=== PATIENT | female | born 1960 | race Caucasian/White ===

== ENCOUNTER 2017-11-03 13:54 | Observation (INO) | payer OTHER, SELFPAY ==
[2017-11-03] VITALS (9 sets, daily range): BP systolic 118–155; BP diastolic 59–90; PULSE 78–101; RESP 14–17; TEMP 36.5–37.4; O2SAT 96–100; BMI 21.4
--- NOTE | 2017-11-03 14:23 | CT_ITS ---
STUDY: CT ABDOMEN AND PELVIS WITH CONTRAST REASON FOR EXAM: Female, 57 years old. Right lower quadrant pain. RADIATION DOSAGE (If Supplied By Facility): CTDIvol = ( 16.98 ) mGy, DLP = ( 327.28 ) mGycm TECHNIQUE: Transaxial images were obtained from the dome of the diaphragm to the symphysis pubis without oral contrast. 100 ml of Isovue 300 contrast was administered. Sagittal and coronal images were reconstructed. Individualized dose optimization techniques were used for this CT. COMPARISON: None. FINDINGS: The visualized lung bases are unremarkable. The visualized portions of the heart are within normal limits. There is a 7 mm hypodense lesion in the right lobe of the liver, too small to characterize. An additional 5 mm hypodense lesion in the dome of the liver is too small to characterize. The liver is otherwise unremarkable. Normal gallbladder and extrahepatic biliary system. Normal spleen. Normal pancreas. Normal bilateral adrenal glands. Normal right kidney. Normal left kidney. The aorta is normal in caliber. The appendix is dilated and fluid-filled, measuring up to 0.9 cm. There is mild periappendiceal stranding. Findings are consistent with acute appendicitis. There is no bowel obstruction. There is no free fluid, free air, or organized collection. Normal urinary bladder. Normal visualized uterus. Normal abdominal wall. Normal osseous structures. CT/Abdomen/Pelvis WITH Contrast IMPRESSION: 1. Acute, uncomplicated appendicitis. 2. Hepatic hypodensities, too small to characterize. Electronically Signed: Zohra Larkin MD at 16:17 EDT Tel , Service support ,
[2017-11-03] MEDS: 0.9% Normal Saline 1,000 ML 125 ML IV ×2 (14:44→21:56)
[2017-11-03] MEDS: Ondansetron 4 MG/2 ML Vial IV (14:44)
[2017-11-03] MEDS: Morphine 4 MG/ML Syringe IV (14:44)
[2017-11-03 15:00] LABS: Absolute Lymphocyte Count 0.69 X10^3/ul (0.83-4.51); Absolute Neutrophil Count 13.9 X10^3/uL (2.0-7.7); Basophil# 0.02 X10^3/uL; Basophil% 0.1 % (0-1); Eosinophil# 0.03 X10^3/uL; Eosinophils% 0.2 % (0-5); Hemoglobin 14.1 g/dl (12.0-15.0); Lymphocyte # 0.69 X10^3/ul (4.0); Lymphocyte % 4.5 % (19-41); Mean Corp Hgb Conc 32.8 g/gl (32-36); Mean Corpuscular Hgb 30.1 pg (27.0-32.0); Mean Corpuscular Volume 91.9 fL (81-99); Mean Platelet Vol. 9.5 fl (6.2-12.0); Monocyte# 0.55 X10^3/uL; Monocyte% 3.6 % (0-10); Neutrophil # 13.89 X10^3/uL (2.7-7.7); Neutrophil % 91.5 % (47-70); Platelet Count 223 K/mm3 (150-450); RBC Distribution Width CV 12.6 % (11.6-14.6); RBC Distribution Width SD 41.9 fl (35.1-43.9); Red Blood Count 4.68 M/mm3 (4.2-5.4); White Blood Count 15.2 K/mm3 (4.4-11.0)
[2017-11-03 15:01] LABS: POSITIVE COUNT NO; POSITIVE DIFFERENTIAL NO; POSITIVE MORPHOLOGY NO
[2017-11-03 15:12] LABS: Anion Gap 7 (5-15); BUN 21 mg/dL (7-18); BUN/Creat Ratio 22.9 RATIO (10-20); Calcium,Total 9.1 mg/dL (8.5-10.1); Chloride 101 mmol/L (98-107); Creatinine, Serum 0.92 mg/dL (0.55-1.02); EST Glomerular Filtration Rate 67 mL/min (>60); Est Glom Filt Rate - Afr Amer 81 mL/min (>60); Glucose 106 mg/dL (74-106); Potassium 4.6 mmol/L (3.5-5.1); Sodium Level 135 mmol/L (136-145)
[2017-11-03 15:43] LABS: Bacteria 0 SEEN /hpf (None Seen); Mucous, Urine 0 SEEN /hpf (<or=2+); Red Blood Cells-Urine 0 SEEN /hpf (0-5); Squamous Epithelial Cells - UA 0 SEEN /hpf (5-10); White Blood Cells 0 SEEN /hpf (0-5)
[2017-11-03 15:52] LABS: Color, Urine Yellow (Yellow); Glucose, Dipstick Normal (Normal); Ketone-Dipstick Negative (Negative); Leukocyte Esterase-Dipstick Negative /ul (Negative); Nitrite-Dipstick Negative (Negative); Occult Blood-Urine Negative /ul (Negative); Protein-Dipstick Negative (Negative); Specific Gravity, Urine 1.005 (1.002-1.030); Urine Bilirubin Dipstick Negative (Negative); Urine Clarity Clear (Clear); Urine Urobilinogen Normal (Normal); Urine pH 6.5 (5.0 - 8.0)
--- NOTE | 2017-11-03 16:25 | NURSING ---
PAGED DR HDZ
--- NOTE | 2017-11-03 16:30 | ED.VISSUMM ---
- ER Visit Summary Date of Service: 11/03/17 Chief Complaint: Abdominal pain History of Present Illness: The patient is a 57 F presenting for evaluation secondary to abdominal pain. Patient has a prior surgical history only of sections and past. Patient reports that today she had an onset of right lower quadrant abdominal pain at about 7 AM. It has been a continuous sharp pain that is worse with palpation worse with movement and worse with the car ride here. Patient reports that she has had nausea but no vomiting denies any diarrhea or constipation and endorses some anorexia associated with this. She also endorses some chills and sweats. She denies any urinary symptoms. Physical Examination: Vital signs within normal limits. Well-nourished female no acute distress. Moist mucous membranes no evidence of conjunctival pallor or scleral icterus. Neck supple. Heart regular rate and rhythm. Lungs sounds clear. Abdomen tender in the right lower quadrant with some voluntary guarding but no evidence of diffuse rigidity. There is a positive Rovsing sign. Negative rebound tenderness negative obturator sign. Remainder the physical otherwise unremarkable. Test Results: CBC shows leukocytosis of 15, chemistry and urinalysis are negative. CT abdomen and pelvis shows nonperforated appendicitis Emergency Department Course and Treatment: Patient presented for evaluation due to abdominal pain. Physical exam was concerning for appendicitis. This was confirmed by CT imaging as noted above. Patient requested consultation by Dr. Jack. Dr. Jack was contacted, patient was given preoperative Zosyn, and the patient will be taken to the operating room for definitive management. Disposition: Operating room Impression: 1. Acute appendicitis This note was generated with [employer] dictation software. It may contain incorrect words, spelling, and punctuation that were not noted in review of the chart prior to signing ED Disposition - Plan for ED Patient: Chief Complaint: Abd Pain Referrals: Tabitha Miranda DO [Primary Care Provider] -
--- NOTE | 2017-11-03 16:33 | ED.DCSUM_ITS ---
- ER Visit Summary Date of Service: 11/03/17 Chief Complaint: Abdominal pain History of Present Illness: The patient is a 57 F presenting for evaluation secondary to abdominal pain. Patient has a prior surgical history only of sections and past. Patient reports that today she had an onset of righ t lower quadrant abdominal pain at about 7 AM. It has been a continuous sharp pain that is worse with palpation worse with movement and worse with the car ride here. Patient reports that she has had nausea but no vomiting denies any diarrhea or constipation and endorses some anorexia associated with this. She also endorses some chills and sweats. She denies any urinary symptoms. Physical Examination: Vital signs within normal limits. Well-nourished female no acute distress. Moist mucous membranes no evidence of conjunctival pallor or scleral icterus. Neck supple. Heart regular rate and rhythm. Lungs sounds clear. Abdomen tender in the right lower quadrant with some voluntary guarding but no evidence of diffuse rigidity. There is a positive Rovsing sign. N egative rebound tenderness negative obturator sign. Remainder the physical otherwise unremarkable. Test Results: CBC shows leukocytosis of 15, chemistry and urinalysis are negat tico. CT abdomen and pelvis shows nonperforated appendicitis Emergency Department Course and Treatment: Patient presented for evaluation due to abdominal pain. Physical exam was concerning for appendicitis. This was confirmed by CT imaging as noted above. Patient requested consultation by Dr. Jack. Dr. Jack was contacted, patient was given preoperative Zosyn, and the patient will be taken to the operating room for definitive management. Disposition: Operating room Impression: 1. Acute appendicitis This note was generated with [employer] dictation software. It may contain incorrect words, spelling, and punctuation that were not noted in review of the chart prior to signing ED Disposition - Plan for ED Patient: Chief Complaint: Abd Pain Referrals: Tabitha Miranda DO [Primary Care Provider] -
--- NOTE | 2017-11-03 17:08 | PCM.HP.BLA ---
History and Physical Date of Admission: 11/03/17 Chief Complaint: abdominal pain History of Present Illness: 57 y/o WF presents with abdominal pain. Started at 7am this morning. She has noted some episodes of abdominal pain in the past, but not as severe. Has nausea, but no emesis. Not feeling hungry, hasn't eaten all day. 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 hypertension Past Surgical History: csection Medications: lipitor plavix lisinopril 10 mg qday Allergies: Has no known drug allergies Social history: TOB use denies ETOH use denies Review of Systems: General - denies fevers, not feeling hungry Cardiovascular denies chest pain, denies history of heart attack Pulmonary denies shortness of breath, denies coughing up blood Gastrointestinal as per HPI Neurological had CVA in June 2016, denies seizures Genitourinary denies burning with urination, denies blood in urine Hematological denies spontaneous/prolonged bleeding Skin denies open non healing wounds Musculoskeletal denies history of fractures Endocrine denies diabetes Psychological denies hallucinations Physical examination: Vital signs Temp 97.7F HR 83 RR 17 BP 130/82 General WD/WN WF in no apparent distress, alert and oriented, not septic appearing HEENT Normocephalic. EOM intact with sclera clear and no icterus noted. Neck is supple with no jugular venous distention noted. Trachea is midline. Lungs clear to auscultation. normal breath sounds in all lung anthony. No rales/rhonchi/wheezing noted. No labored breathing noted, such as retractions. Heart normal S1 and S2 auscultated. No rubs/clicks/murmurs noted. Abdomen soft, but tender in the right lower quadrant with rebound, hypoactive bowel sounds, no masses noted. Extremities no calf tenderness noted. No pitting edema noted. Genitourinary/Rectal deferred Skin nomal skin integrity. Neurological no focal deficits noted Psychological normal affect, patient is calm and appropriate Impression: right lower quadrant abdominal pain - appendicitis by CT scan leukocytosis Discussion/Plan: I have discussed the above with the patient, her and daughter who is present with her. The patient has signs/symptoms of appendicitis. I have offered the patient the procedure of laparoscopic appendectomy. I have explained the procedure to the patient. I have counseled the patient as to the risks of the procedure, including but not limited to: infection, bleeding, injury to any blood vessels/nerves, scar tissue, injury to any intraabdominal organs, injury to kidney/ureters, injury to bowel/bladder, intraabdominal abscess/bleeding, hernias at incisional sites, wound infections, possible open procedure, complications of anesthesia, postoperative pneumonia/cardiac problems/blood clots etc. the patient understands. She wishes to proceed. I have answered all questions to the patient?s satisfaction and the patient has no further questions.
[2017-11-03] MEDS: Piperacil/Tazobactam 3.375 GM/50 ML ML IV (17:10)
--- NOTE | 2017-11-03 18:30 | APP_PTH ---
PATIENT: TABITHA VERDUZCO LOC: [facility] U#:[id number] AGE/SX: 57/F ROOM: MS305 RE11/03/[address]: Dr. Kelli Jack MD : 1960 BED: 1 DIS: 11/03/2017 SPEC #: [id number] RECD: 11/04/17 10:30 STATUS: NOLA REQ #: [id number] DIXIE: 11/03/17 18:[address]: Kelli Jack DEPT: SURGICAL PATHOLOGY RECD BY: Martín Sanchez ENTERED: 11/04/17 11:09 SP TYPE: APPENDIX OTHR DR: Dr. Tabitha Miranda DO Tissues: Appendix, NOS Procedures: Surgery Specimen Level III HEADER OPERATION: Laparoscopic, appendectomy PRE-OP DIAGNOSIS: Acute appendicitis TISSUE SUBMITTED: Appendix MICROSCOPIC DIAGNOSIS Appendix: Acute appendicitis and periappendicitis. SUSAN:mercedes 11/05/17 MICROSCOPIC DESCRIPTION Slides are reviewed. GROSS DESCRIPTION Received is one container labeled with the patient's name and designated appendix. The specimen consists of an appendix measuring 8 cm in length and up to 1 cm in diameter. The attached periappendiceal adipose tissue measures up to 2 cm in width. No obvious perforation is identified. The mucosa is filled with purulent fecal material. No fecalith is identified. Flight Hostess sections are submitted in one cassette. / SJ:rg 11/04/17 TC:2 [facility]: [id number]
--- NOTE | 2017-11-03 18:54 | OP.PN_ITS ---
Immediate Post-Op Note Date of Procedure: 11/03/17 Primary Surgeon/Physician: Kelli Jack finishing range feeder: NOT,DEFINED Pre-Operative Diagnosis: right lower quadrant abdominal pain, appendicitis by CT scan, leukocytosis Post-Operative Diagnosis: acute appendicitis Surgery/Procedure Performed:: laparoscopic appendectomy Description of Surgical Findings:: acute appendicitis - not perforated Estimated Blood Loss: < 10 ml Specimen's removed: appendix Type of Anesthesia:: General ASA Class: ASA2 Plus Emergency - Admit VTE Documentation VTE Present on Admission: Yes VTE Mechan Device Prophylaxis: SCD's
--- NOTE | 2017-11-03 18:55 | DCINST_ITS ---
Discharge Diet: No Restrictions - avoid carbonated beverages for a couple of days, drink plenty of fluids Discharge Activity: Return to Normal Activity, May not drive while taking narcotic pain medications. Lifting Restrictions: no lifting greater than 20 pounds for 2 weeks Call your doctor if your incision/area has: Continuous Slow Oozing, Foul Smelling Discharge Call your doctor if you observe: Fever of 101 or Higher Additional Dressing/Incision Instructions:: Leave dressings in place. May get wet in shower. Do not soak - no tub baths/swimming Medications to take at Discharge Acetaminophen [Tylenol Tablet] 650 mg PO Q4H PRN PRN tablet 06/30/16 Atorvastatin Calcium [Lipitor] 40 mg PO QHS 11/03/17 Ciprofloxacin [Cipro] 500 mg PO BID #14 tab 11/03/17 Clopidogrel Bisulfate [Plavix] 75 mg PO QODAY 11/03/17 Hydrocodone Bitart/Apap 5-325 [[place] 5MG-325MG] 1 tab PO Q6H PRN PRN 5 Days #20 tab 11/03/17 Lisinopril [Zestril] 5 mg PO BID 11/03/17 Allergies/Adverse Reactions: Allergies No Known Allergies Allergy (Verified 11/03/17 14:20) The following prescriptions were given: Hydrocodone Bitart/Apap 5-325 [[place] 5MG-325MG] 1 tab PO Q6H PRN PRN 5 Days #20 tab PRN Reason: Pain Ciprofloxacin [Cipro] 500 mg PO BID #14 tab Primary Care Physician: Tabitha Miranda DO [Primary Care Provider] - Test Results: Test results from this visit will be discussed in further detail at your follow- up appointment, if applicable. Please Follow Up With: Kelli Jakc MD - call When: to be seen in 7-10 days, please call for date and time, thank you
[2017-11-03] MEDS: Bupiv/Epi 0.5% Mpf 30 ML Vial (19:14)
--- NOTE | 2017-11-03 19:49 | OP.PCM_ITS ---
Report of Operation Date of Procedure: 11/03/17 Pre-Operative Diagnosis: right lower quadrant abdominal pain, appendicitis by CT scan, leukocytosis Post-Operative Diagnosis: acute appendicitis Surgery/Procedure Performed:: laparoscopic appendectomy Description of Surgical Findings:: acute appendicitis - not perforated director employee safety and health: NOT,DEFINED Type of Anesthesia:: General Anesthesiologist: Homero Ramírez Specimen's removed: appendix Estimated Blood Loss (mL): < 10 ml Fluids Replaced: 700 ml RL Description of Procedure: After informed consent was obtained, the patient was brought into the operating room. Appropriate time out protocol was followed. She was then placed in the supine position on the operating table. The patient was then placed under general anesthesia. The patient?s abdomen was then prepped with a sterile surgical skin preparation and sterile surgical drapes were placed. The infraumbilical skin fold was grasped with penetrating clamps and the skin and subcutaneous tissues were infiltrated with 0.5% marcaine with epinephrine. A skin incision was then made. A Veress needle was then inserted into the intraabdominal cavity and checked to be in the proper position with a normal saline drop test. A CO2 pneumoperitoneum was then created. Once this was achieved, the Veress needle was removed and a 5 mm trocar was placed in its stead. A 5 mm laparoscope was then inserted into the trocar. Careful examination of the intraabdominal contents was then done. There was no evidence of injury to any internal organs from placement of the Veress needle or the trocar. Under direct visualization, a 12mm suprapubic trocar and a 5mm left low er quadrant trocar was then placed into the intraabdominal cavity. The skin and subcutaneous tissues at these sites were first infiltrated with 0.5% marcaine with epinephrine. Attention was then directed to the right lower quadrant. The appendix was visualized. It was grossly inflamed and had fibrinous exudate and swelling, it was not perforated. The mesentery of the appendix was taken down by cauterizing the tissue from the free edge to the base of the appendix with the Kleppinger device. Once the base of the appendix was freed of surrounding tissues, then the linear gastrointestinal stapling device was brought into the abdominal cavity via the 12mm port and placed across the base of the appendix. The stapling device was fired, thus stapling across the base of the appendix and transecting it simultaneously. The appendix was then placed in an Endobag and this was brought out through the suprapubic trocar. The appendix was then forwarded to Pathology for analysis. The appendiceal stump was carefully examined. There was no evidence of any active bleeding or fecal leakage. The surrounding tissues were also examined and there was no evidence of any active bleeding or fecal/bile leakage. The intraabdominal cavity was examined and there was no evidence of further inflammation or tissue abnormality. Small squares of surgicel was applied to the staple line. There was no evidence of any peritoneal fluid. The CO2 pneumoperitoneum was released and all trocars were removed intact. The suprapubic fascia was reapproximated with a figure-of-8 vicryl suture. All skin incisions were reapproximated with monocryl suture. Cavilon and steristrips were applied to reinforce skin closure and proper sterile dressings were placed. The patient was then extubated and brought to the Recovery Room in stable condition. - Complications none noted - Admit VTE Documentation VTE Present on Admission: Yes VTE Mechan Device Prophylaxis: SCD's
[2017-11-03] MEDS: 0.9% NaCl Peripheral Flush Adult/Peds IV (21:56)
[2017-11-03] MEDS: HYDROcodone Bitartrate/Apap 5/325 Tablet PO (23:49)
--- NOTE | 2017-11-03 23:50 | NURSING ---
medicated pt for pain with Bumpass before discharging. home prescription is Bumpass q6h, instructed pt to not take another Bumpass until 6 hours from now, just before 6am.
== END 2017-11-03 23:58 | disposition home or self-care (01) ==
LOC: ED 14:49 → SDC 17:01 → ACINP 17:02 → SDC 20:04 → ACINP 20:05 → MS3 11-04 09:44
PROVIDERS: Admitting Provider Surgery; Emergency Provider Emergency Medicine; Family Provider Family Medicine; PCP Family Medicine; Visit Provider Surgery
PROC: 0DTJ4ZZ Resection of Appendix, Percutaneous Endoscopic Approach (ICD-10-PCS; CPT 44970; principal; 2017-11-03 18:30)
DX: K35.80 Unspecified acute appendicitis (principal); I10 Essential (primary) hypertension; Z86.73 Personal history of transient ischemic attack (TIA), and cerebral infarction without residual deficits; Z79.02 Long term (current) use of antithrombotics/antiplatelets; Z79.899 Other long term (current) drug therapy
CPT/HCPCS: 44970; 74177; 80048; 81001; 85025; 88304; 96361; 96365; 96375; 99218; 99282; J7030; Q9967; A4216; G0378; J2405

== ENCOUNTER → 2019-03-18 08:42 | Outpatient (CLI) | payer OTHER, SELFPAY ==
[2017-11-03 21:02] VITALS: BMI 21.4
[2019-03-18 09:17] LABS: Absolute Lymphocyte Count 2.07 X10^3/uL (0.83-4.51); Absolute Neutrophil Count 3.9 X10^3/uL (2.0-7.7); Basophil# 0.03 X10^3/uL; Basophil% 0.4 % (0-1); Eosinophil# 0.35 X10^3/uL; Hematocrit 42.7 % (37-47); Hemoglobin 13.6 g/dL (12.0-15.0); Lymphocyte # 2.07 X10^3/ul (4.0); Lymphocyte % 29.7 % (19-41); Mean Corp Hgb Conc 31.9 g/dL (32-36); Mean Corpuscular Hgb 29.3 pg (27.0-32.0); Mean Platelet Vol. 9.3 fl (6.2-12.0); Monocyte# 0.61 X10^3/uL; Monocyte% 8.7 % (0-10); NRBC Flagged by Analyzer 0 % (0-5); Neutrophil # 3.91 X10^3/uL (2.7-7.7); Neutrophil % 56.1 % (47-70); Platelet Count 275 K/mm3 (150-450); RBC Distribution Width CV 12.4 % (11.6-14.6); RBC Distribution Width SD 41.8 fl (35.1-43.9); Red Blood Count 4.64 M/mm3 (4.2-5.4)
[2019-03-18 09:50] LABS: ALB/GLOB Ratio 1.2 RATIO (0.9-2.4); AST(SGOT) 22 U/L (15-37); Alanine Aminotransfer ALT/SGPT 33 U/L (13-56); Albumin, Serum 3.8 g/dL (3.2-5.0); Alkaline Phosphatase 94 U/L (45-117); Anion Gap 5 (5-15); BUN 23 mg/dL (7-18); BUN/Creat Ratio 25.3 RATIO (10-20); Calcium,Total 8.8 mg/dL (8.5-10.1); Chloride 104 mmol/L (98-107); Cholesterol 139 mg/dL (200); Creatinine, Serum 0.91 mg/dL (0.55-1.02); EST Glomerular Filtration Rate 67 mL/min (>60); Est Glom Filt Rate - Afr Amer 81 mL/min (>60); Free T3 2.9 pg/mL (2.18-3.98); Globulin 3.2 g/dL (2.2-4.2); Glucose 100 mg/dL (74-106); High Density Lipoprotein 58 mg/dL; Potassium 3.9 mmol/L (3.5-5.1); Sodium Level 138 mmol/L (136-145); T4 Free Direct 0.96 ng/dL (0.76-1.46); Thyroid Stim Hormone (TSH) 0.82 uIU/mL (0.358-3.74); Triglycerides 88 mg/dL; Very Low Density Lipoprotein 18 mg/dL (5-40)
[2019-03-20 10:55] LABS: Vitamin B12 447 pg/mL (211-911)
== END ==
PROVIDERS: PCP Family Medicine; Referring Provider Family Medicine; Visit Provider Family Medicine
DX: R53.83 Other fatigue (principal); E78.5 Hyperlipidemia, unspecified; E53.8 Deficiency of other specified B group vitamins; E55.9 Vitamin D deficiency, unspecified; Z51.81 Encounter for therapeutic drug level monitoring
CPT/HCPCS: 36415; 80053; 80061; 82306; 82607; 84439; 84443; 84481; 85025

== ENCOUNTER 2021-03-27 16:22 | Outpatient (CLI) | payer OTHER, SELFPAY ==
[2021-03-27 17:10] LABS: Absolute Lymphocyte Count 1.99 X10^3/uL (0.83-4.51); Absolute Neutrophil Count 4.4 X10^3/uL (2.0-7.7); Basophil# 0.02 X10^3/uL; Basophil% 0.3 % (0-1); Eosinophil# 0.07 X10^3/uL; Hematocrit 41.1 % (37-47); Hemoglobin 13.9 g/dL (12.0-15.0); Lymphocyte # 1.99 X10^3/ul (0.83-4.51); Lymphocyte % 28.6 % (19-41); Mean Corp Hgb Conc 33.8 g/dL (32-36); Mean Corpuscular Hgb 31.7 pg (27.0-32.0); Mean Corpuscular Volume 93.8 fL (81-99); Mean Platelet Vol. 9.6 fl (6.2-12.0); Monocyte# 0.51 X10^3/uL; Monocyte% 7.3 % (0-10); NRBC Flagged by Analyzer 0 % (0-5); Neutrophil # 4.35 X10^3/uL (2.7-7.7); Neutrophil % 62.4 % (47-70); Platelet Count 276 K/mm3 (150-450); RBC Distribution Width CV 11.9 % (11.6-14.6); RBC Distribution Width SD 41.7 fl (35.1-43.9); Red Blood Count 4.38 M/mm3 (4.2-5.4)
[2021-03-27 18:06] LABS: ALB/GLOB Ratio 1.3 RATIO (0.9-2.4); AST(SGOT) 22 U/L (15-37); Alanine Aminotransfer ALT/SGPT 28 U/L (13-56); Albumin, Serum 4.3 g/dL (3.2-5.0); Alkaline Phosphatase 72 U/L (45-117); Anion Gap 4 (5-15); BUN 24 mg/dL (7-18); BUN/Creat Ratio 26.8 RATIO (10-20); Calcium,Total 9.1 mg/dL (8.5-10.1); Chloride 104 mmol/L (98-107); Cholesterol 157 mg/dL (200); EST Glomerular Filtration Rate 68 mL/min (>60); Est Glom Filt Rate - Afr Amer 82 mL/min (>60); Globulin 3.3 g/dL (2.2-4.2); Glucose 109 mg/dL (74-106); High Density Lipoprotein 73 mg/dL; Potassium 4.1 mmol/L (3.5-5.1); Protein, Total 7.6 g/dL (6.4-8.2); Sodium Level 137 mmol/L (136-145); Triglycerides 80 mg/dL; Very Low Density Lipoprotein 16 mg/dL (5-40)
== END 2021-03-27 23:59 | disposition home or self-care (01) ==
LOC: LAB 16:27
PROVIDERS: PCP Family Medicine; Visit Provider Family Medicine
DX: I63.9 Cerebral infarction, unspecified (principal); R53.83 Other fatigue; Z51.81 Encounter for therapeutic drug level monitoring
CPT/HCPCS: 36415; 80053; 80061; 85025

== ENCOUNTER 2021-03-31 16:47 | Outpatient (CLI) | payer OTHER, SELFPAY ==
--- NOTE | 2021-03-31 16:51 | RAD_ITS ---
STUDY: X-RAY - PELVIS AND LEFT HIP REASON FOR EXAM: Female, 60 years old. PAIN TECHNIQUE: XR Hip Unilateral with Pelvis when performed; 2-3 Views COMPARISON: None. FINDINGS: There is a non-specific bowel gas pattern. Normal visualized soft tissue structures. There are bilateral tubal ligation clips. Normal bilateral iliac wings, sacroiliac joints and visualized sacrum. Normal bilateral superior and inferior pubic rami. Normal pubic symphysis. Normal bilateral ischial tuberosities. Normal visualized femoral head. Normal acetabulum. Normal hip joint. RAD/HIP, UNI W/ Pelvis 2-3 Views IMPRESSION: No acute findings. Electronically Signed: Hermes Jaime MD at 18:25 EST ,
--- NOTE | 2021-03-31 16:51 | RAD_ITS ---
STUDY: X-RAY - LUMBAR SPINE REASON FOR EXAM: Female, 60 years old. LOW BACK PAIN LUMBAR RADICULOPATHY TECHNIQUE: XR Spine Lumbar Min 4 Views COMPARISON: None FINDINGS: Normal lumbar lordosis. There is a levoscoliosis of the lumbar spine. There is a normal alignment of the vertebrae. There is diffuse demineralization with multi-level endplate spondylosis. There is multi-level degenerative disc disease with multi-level disc space narrowing. The soft tissue structures are unremarkable. RAD/L/S Spine Min 4 Views IMPRESSION: Degenerative changes of the spine, as detailed above. Electronically Signed: Hermes Jaime MD at 18:36 EST ,
== END 2021-03-31 23:59 | disposition home or self-care (01) ==
LOC: MTRAD 16:49
PROVIDERS: PCP Family Medicine; Referring Provider Family Medicine; Visit Provider Family Medicine
DX: M25.552 Pain in left hip (principal); M54.16 Radiculopathy, lumbar region
CPT/HCPCS: 72110; 73502

== ENCOUNTER 2021-05-15 13:45 | Outpatient (CLI) | payer OTHER, SELFPAY ==
--- NOTE | 2021-05-15 13:55 | BD_ITS ---
STUDY: DUAL ENERGY X-RAY ABSORPTIOMETRY / DXA REASON FOR EXAM: Female, 60 years old. M810. The patient is postmenopausal. TECHNIQUE: Bone Mineral Density (BMD) measurements of lumbar spine and bilateral hips were obtained. COMPARISON: None. FINDINGS: Lumbar Spine (L1-L4): g/cm2 (0.871) / T-score (-1.6) / Z-score (-0.1) Findings are suggestive of osteopenia with a moderate fracture risk. Left Femur Total: g/cm2 (0.643) / T-score (-2.5) / Z-score (-1.4) Left Femoral Neck: g/cm2 (0.517) / T-score (-3.0) / Z-score (-1.6) Right Femur Total: g/cm2 (0.710) / T-score (-1.9) / Z-score (-0.9) Right Femoral Neck: g/cm2 (0.5-5) / T-score (-2.9) / Z-score (-1.6) BD/Dexa Bone Density Study IMPRESSION: The patient is considered osteoporotic as outlined below according to World [place] Organization (WHO) criteria with a high fracture risk. Reference Information: The T-score is the number of standard deviations above or below the standard which is normal for young adults at their peak bone mineral density. The World Health Organization (WHO) interprets the T-scores as follows: Above -1 Normal bone density Between -1 and -2.5 Osteopenia Equal to / or below -2.5 Osteoporosis As a practical clinical guideline, osteopenia may be graded as follows: Mild -1 through -1.5 Moderate -1.6 through -2.0 Severe -2.1 through -2.4 The Z-score is the number of standard deviations above or below age-matched controls. A Z-score of less than -1.5 would be considered abnormal. References: 1. NIH Osteoporosis and Related Bone Diseases www osteo.org 2. International Society for Clinical Densitometry www iscd.org 3. National Osteoporosis Foundation www nof.org Electronically Signed: Oscar Emmanuel MD at 15:11 EDT ,
== END 2021-05-15 23:59 | disposition home or self-care (01) ==
LOC: OPBD 13:47
PROVIDERS: PCP Family Medicine; Visit Provider Family Medicine
DX: M81.0 Age-related osteoporosis without current pathological fracture (principal)
CPT/HCPCS: 77080

== ENCOUNTER → 2023-06-08 | Outpatient (CLI) | payer BC, SELFPAY ==
--- NOTE | 2023-06-08 08:30 | RAD_ITS ---
STUDY: X-RAY - PELVIS AND LEFT HIP REASON FOR EXAM: Female, 62 years old. LOW BACK PAIN AND LEFT HIP PAIN TECHNIQUE: 3 views of the pelvis and left hip. COMPARISON: None. FINDINGS: There is a non-specific bowel gas pattern. There are surgical clips in the pelvis. Normal bilateral iliac wings, sacroiliac joints and visualized sacrum. Normal bilateral superior and inferior pubic rami. Normal pubic symphysis. Normal bilateral ischial tuberosities. Intact visualized femoral head. Intact acetabulum. There is minimal degenerative arthrosis of the hip joints bilaterally, with tiny marginal osteophyte formation. There is no demonstrated acute fracture. RAD/HIP, UNI W/ Pelvis 2-3 Views IMPRESSION: Minimal degenerative arthrosis of the hip joints bilaterally. No demonstrated acute fracture. Electronically Signed: Timo Fragoso MD at 8:30 EDT ,
--- NOTE | 2023-06-08 08:30 | RAD_ITS ---
STUDY: X-RAY - LUMBAR SPINE REASON FOR EXAM: Female, 62 years old. LOW BACK PAIN AND LEFT HIP PAIN TECHNIQUE: 4 view(s) of the lumbar spine were obtained. COMPARISON: None FINDINGS: Normal lumbar lordosis. There is mild levoconvex scoliosis. There is a normal alignment of the vertebrae. There is multilevel endplate spondylosis of the lumbar vertebrae. There is multi-level degenerative disc disease with multi-level disc space narrowing. There is no demonstrated fracture. The soft tissue structures are unremarkable. RAD/L/S Spine Min 4 Views IMPRESSION: Mild to moderate multilevel spondylosis and degenerative disc disease. No acute abnormality. Electronically Signed: Sukhdeep Saunders MD at 21:01 EDT ,
[2023-06-08 09:21] LABS: Absolute Lymphocyte Count 1.36 X10^3/uL (0.83-4.51); Absolute Neutrophil Count 3.2 X10^3/uL (2.0-7.7); Basophil# 0.04 X10^3/uL; Basophil% 0.8 % (0-1); Eosinophil# 0.07 X10^3/uL; Eosinophils% 1.4 % (0-5); Hematocrit 41.1 % (37-47); Hemoglobin 13.4 g/dL (12.0-15.0); Lymphocyte # 1.36 X10^3/ul (0.83-4.51); Lymphocyte % 26.6 % (19-41); Mean Corp Hgb Conc 32.6 g/dL (32-36); Mean Corpuscular Volume 95.1 fL (81-99); Mean Platelet Vol. 9.3 fl (6.2-12.0); Monocyte% 7.8 % (0-10); NRBC Flagged by Analyzer 0 % (0-5); Neutrophil # 3.24 X10^3/uL (2.7-7.7); Neutrophil % 63.2 % (47-70); Platelet Count 272 K/mm3 (150-450); RBC Distribution Width CV 12.2 % (11.6-14.6); RBC Distribution Width SD 43.4 fl (35.1-43.9); Red Blood Count 4.32 M/mm3 (4.2-5.4); White Blood Count 5.1 K/mm3 (4.4-11.0)
[2023-06-08 09:30] LABS: Erythrocyte Sedimentation Rate 2 mm/hr (0-30)
[2023-06-08 10:48] LABS: ALB/GLOB Ratio 1.4 RATIO (0.9-2.4); AST(SGOT) 25 U/L (15-37); Alanine Aminotransfer ALT/SGPT 25 U/L (13-56); Albumin, Serum 4.2 g/dL (3.2-5.0); Alkaline Phosphatase 62 U/L (45-117); Anion Gap 7 (5-15); BUN 31 mg/dL (7-18); BUN/Creat Ratio 31.6 RATIO (10-20); CRP < 2.90 mg/L (0.0-3.0); Calcium,Total 9.4 mg/dL (8.5-10.1); Chloride 108 mmol/L (98-107); Cholesterol 158 mg/dL (200); Creatinine, Serum 0.98 mg/dL (0.55-1.02); EST Glomerular Filtration Rate 61 mL/min (>60); Est Glom Filt Rate - Afr Amer 74 mL/min (>60); Free T3 2.4 pg/mL (2.18-3.98); Glucose 100 mg/dL (74-106); High Density Lipoprotein 75 mg/dL; Potassium 3.9 mmol/L (3.5-5.1); Protein, Total 7.2 g/dL (6.4-8.2); Rheumatoid Factor < 10.0 IU/mL (<15); Sodium Level 138 mmol/L (136-145); T4 Free Direct 1.03 ng/dL (0.76-1.46); Thyroid Stim Hormone (TSH) 1.05 uIU/mL (0.358-3.74); Triglycerides 65 mg/dL; Very Low Density Lipoprotein 13 mg/dL (5-40)
[2023-06-09 12:09] LABS: ANTINUCLEAR ANTIBODIES DIRECT Negative (Negative)
[2023-06-09 13:08] LABS: CCP IgG Antibodies 10 units (0-19)
== END | disposition home or self-care (01) ==
LOC: LAB 08:14
PROVIDERS: PCP Family Medicine; Referring Provider Family Medicine; Visit Provider Family Medicine
DX: M25.552 Pain in left hip (principal); R53.83 Other fatigue; Z51.81 Encounter for therapeutic drug level monitoring; I10 Essential (primary) hypertension; E78.5 Hyperlipidemia, unspecified; M54.50 Low back pain, unspecified
CPT/HCPCS: 36415; 72110; 73502; 80053; 80061; 84439; 84443; 84481; 85025; 85652; 86038; 86140; 86200; 86225; 86235; 86431